=== PATIENT | female | born 1935 | race Caucasian/White ===

== ENCOUNTER → 2017-07-13 | Day surgery (SDC) | payer MEDICARE, OTHER ==
--- NOTE | 2017-07-11 15:24 | Diagnostic Imaging Report ---
PROCEDURE: Frontal and lateral views of the chest. COMPARISON: Chest x-ray 07/18/2014. INDICATIONS: PRE OP FINDINGS: Lines/tubes: None. Lungs: The lungs are well inflated and clear. There is no evidence of pneumonia or pulmonary edema. Pleura: There is no pleural effusion or pneumothorax. Heart and mediastinum: The heart and the mediastinum are normal. Aorta is mildly tortuous with atherosclerotic calcifications. Bones: No acute bony abnormality. Stable vertebroplasty material in the lower thoracic vertebrae x2. Unchanging anterior cervical fusion plate. Upper abdomen: Surgical clips near the GE junction and in the left upper quadrant abdomen. IMPRESSION: No acute cardiopulmonary disease. Dictated by: Noé Wie M.D. on 07/11/2017 at 15:32 Electronically approved by: Noé Wei M.D. on 07/11/2017 at 15:32
[2017-07-11 15:39] LABS: BASOPHILS % 0.3 % (0.0-1.0); EOSINOPHILS # (AUTO) 0.1 (0.0-0.4); EOSINOPHILS % 1.8 % (0.0-6.0); HEMATOCRIT 35.9 % (34.2-44.1); HEMOGLOBIN 11.2 g/dL (12.0-16.0); LYMPHOCYTES # (AUTO) 1.7 (1.0-3.2); LYMPHOCYTES % 26.9 % (18.0-39.1); MEAN CORPUSCULAR HEMOGLOBIN 29.6 pg (28-32); MEAN CORPUSCULAR HGB CONC 31.2 g/dL (31-35); MEAN CORPUSCULAR VOLUME 94.7 fL (81-99); MONOCYTES # (AUTO) 0.3 (0.2-0.8); MONOCYTES % 4.2 % (4.4-11.3); NEUTROPHILS # (AUTO) 4.1 (2.1-6.9); NEUTROPHILS % 66.2 % (38.7-80.0); PLATELET COUNT 148 x10e3/uL (140-360); RED BLOOD COUNT 3.79 x10e6/uL (3.6-5.1); RED CELL DISTRIBUTION WIDTH 15.6 % (11.7-14.4)
[2017-07-11 15:54] LABS: INR 1.07; PARTIAL THROMBOPLASTIN TIME 37.5 seconds (23.8-35.5); PROTHROMBIN TIME 14.5 seconds (11.9-14.5)
[~2017-07-13] MED LIST: BREO; BUPIVACAINE HCL 0.5% INJ 30 ML VIAL INJ ONE; CARAFATE1 GM/10 ML PO; CEFAZOLIN SOD 1 GM VIAL ONE; CIMZIA400 MG/2 M INJ; COUMADIN3 MG PO; COUMADIN6 MG PO; EVOXAC30 MG PO; FENTANYL CITRATE/PF 100MCG/2 ML INJ ONE; FLECTOR1 EACH TD; FLUTICASONE PROP PO; HYDROCODONE/APAP 7.5MG-325MG 1 EA TAB ONE; HYDROCODONE/APAP 7.5MG-325MG 1 EA TAB PO ONE; HYDROCODONE/APAP 7.5MG-325MG 1 EA TAB PO PRN; LEVOTHYROXINE88 MCG PO; LOVENOX40 MG/0.4 IM; LYRICA150 MG PO; LYRICA50 MG PO; MECLIZINE HCL25 MG PO; MIDAZOLAM HCL 2 MG/2 ML VIAL ONE; MORPHINE SULFATE 2 MG/ML SYR IV PRN; MYRBETRIQ25 MG PO; NEXIUM40 MG PO; NITROSTAT0.4 MG SL; PENTOXIFYLLINE 400 MG TAB CR PO SCH; PLAQUENIL200 MG PO; PREDNISONE10 MG PO; PREDNISONE5 MG PO; SEVOFLURANE INHAL SOLN 250 ML PEN BTL ONE; THYROXINE PO; TYLENOL WITH C1 EACH PO; ULTRAM50 MG PO; WARFARIN SODIUM5 MG PO; [UNRECOGNIZED DRUG - CODE] PO; [UNRECOGNIZED DRUG - OTHER] INJ
--- NOTE | 2017-07-14 14:55 | Operative Report ---
DATE OF PROCEDURE: July 13, 2017 PREOPERATIVE DIAGNOSIS: Right carpal tunnel syndrome, G56.01. POSTOPERATIVE DIAGNOSIS: Right carpal tunnel syndrome, G56.01. PROCEDURE: Right carpal tunnel release. ANESTHESIA: General. INDICATIONS: Patient is a woman who presents with severe right carpal tunnel syndrome, who was taken to the operating room for right carpal tunnel release. DETAILS OF PROCEDURE: After induction of general anesthesia, the patient was placed on the operating table in the supine position. The right arm was abducted over a hand table. The right hand, wrist, and forearm were prepped and draped circumferentially in sterile fashion. A small midline incision was created over the median palmar crease of the hand just distal to the distal flexor crease of the wrist. The subcutaneous fat was divided. The transverse carpal ligament was identified and incised with a #15 C-blade. The transverse carpal ligament was found to be extremely thick. Once the median nerve was visualized, the transverse carpal ligament was then divided proximally and distally as the care team assistant retracted the skin edges to expose the full length of the median nerve within the carpal tunnel. The median motor branch of the nerve was preserved within its fat pad more distally. Excellent decompression was achieved. The wound was irrigated with Bacitracin solution and closed with a 3-0 Vicryl suture for the subcutaneous layer and 3-0 nylon sutures in a vertical mattress fashion for the skin layer. The patient was awakened, extubated, and taken to postanesthesia care unit in stable condition. No intraoperative complications were encountered. Job#: [id number] PAT
== END | disposition home or self-care (01) ==
LOC: OR 07:47
PROVIDERS: ATTEND Neurological Surgery
DX: G56.01 Carpal tunnel syndrome, right upper limb (principal); M06.9 Rheumatoid arthritis, unspecified; G47.33 Obstructive sleep apnea (adult) (pediatric); I10 Essential (primary) hypertension; E03.9 Hypothyroidism, unspecified; K58.9 Irritable bowel syndrome, unspecified; Z01.810 Encounter for preprocedural cardiovascular examination; Z01.812 Encounter for preprocedural laboratory examination; Z01.818 Encounter for other preprocedural examination; Z79.01 Long term (current) use of anticoagulants
CPT/HCPCS: 36415; 64721; 71046; 85025; 85610; 85730; 93005; J0690; J2250

== ENCOUNTER 2018-11-24 15:23 | Emergency (ER) | payer MEDICARE, OTHER ==
[~2018-11-24] VITALS: Ht 160 cm; Wt 57.6 kg
[~2018-11-24 15:23] MED LIST changes: -BUPIVACAINE HCL 0.5% INJ 30 ML VIAL INJ ONE; -CEFAZOLIN SOD 1 GM VIAL ONE; -FENTANYL CITRATE/PF 100MCG/2 ML INJ ONE; -HYDROCODONE/APAP 7.5MG-325MG 1 EA TAB ONE; -HYDROCODONE/APAP 7.5MG-325MG 1 EA TAB PO ONE; -HYDROCODONE/APAP 7.5MG-325MG 1 EA TAB PO PRN; -MIDAZOLAM HCL 2 MG/2 ML VIAL ONE; -MORPHINE SULFATE 2 MG/ML SYR IV PRN; -PENTOXIFYLLINE 400 MG TAB CR PO SCH; -SEVOFLURANE INHAL SOLN 250 ML PEN BTL ONE
--- OUTSIDE RECORDS SUMMARY | 2018-11-24 15:27 | XMS REPORT | Summary of Care ---
Author Author PAOLO VARGAS M.D. Unknown Address Unknown Phone Unavailable Care Team Providers Care Lead Security Officer Name Role Phone REMI SHARP M.D. Unavailable Unavailable VIRGIL ANGULO M.D. Unavailable Unavailable Crescencio Butler, October Unavailable Unavailable DANIEL MEDEL MD Unavailable Unavailable Unavailable Unavailable Functional Status Name Dates Details Functional status health issues are not documented Status: Name Dates Details Cognitive status health issues are not documented Status: Problems Name Dates Details Bilateral leg edema (782.3, R60.0) Status: Active Coronary artery disease (414.00, I25.10) Status: Active Essential (primary) hypertension (401.9, I10) Status: Active Leg pain, bilateral (729.5, M79.604) Status: Active Rheumatoid arthritis (714.0, M06.9) Status: Active 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 Active predniSONE 5 MG Oral Tablet TAKE 1 TABLET DAILY. * Refills: 0 Active Marshall 10-325 MG Oral Tablet TAKE TABLET PRN * Refills: 0 Active Lyrica 75 MG Oral Capsule TAKE 1 CAPSULE TWICE DAILY. * Refills: 0 Active Plaquenil 200 MG Oral Tablet TAKE 1 TABLET TWICE DAILY. * Refills: 0 * Start : 12-Sep-2013 Active Nitrostat 0.4 MG Sublingual Tablet Sublingual PLACE 1 TABLET UNDER THE TONGUE EVERY 5 MINUTES UP TO 3 DOSES NEEDED FOR CHES T PAIN. * Quantity: 25 Refills: 1 VIRGIL ANGULO M.D. * Start : 24-Mar-2014 Active Furosemide 20 MG Oral Tablet TAKE 1 TABLET DAILY. * Quantity: 30 Refills: 0 REMI SHARP M.D. * Start : 29-Oct-2015 Active Breo Ellipta 100-25 MCG/INH Inhalation Aerosol Powder Breath Activated USE DIRECTED ON PACKAGE * Refills: 0 REMI SHARP M.D. * Start : 01-Nov-2016 Active 28 Inhaler Pack Carafate 1 GM Oral Tablet TAKE 1 TABLET EVERY 12 HOURS. * Quantity: 60 Refills: 3 * Start : 09-May-2017 Active Eliquis 2.5 MG Oral Tablet Take 1 tablet twice a day * Quantity: 180 Refills: 0 * Start : 27-Oct-2017 Active Allergies and Adverse Reactions Name Dates Details No Known Drug Allergies (Allergy) Status: Active Past Medical History Name Dates Details History of essential hypertension (V12.59, Z86.79) Status: Resolved History of hyperlipidemia (V12.29, Z86.39) Status: Resolved History of Rheumatoid arthritis (714.0, M06.9) Status: Resolved History of Thrombophlebitis Of Deep Vessels Of The Lower Extremity (V12.51) Status: Resolved History of thyroid disease (V12.29, Z86.39) Status: Resolved Procedures Procedure Dates Details History of Appendectomy Completed History of Cholecystectomy Completed History of Hysterectomy Completed History of Foot Surgery Right Completed History of Cataract Surgery Completed Immunization Name Dates Details Immunizations not documented Family History Name Dates Details Family history of Heart Disease (V17.49) Comments: Family History Status: Active Social History Name Dates Details - Status: Name Dates Details Former smoker Vital Signs Date Test Result Details No Known Vitals to report Results Date Description Value Details Results not documented Plan of Care Name Dates Details Planned Observations Planned Goals not documented Planned Encounters Appointment; PAOLO VARGAS M.D. On: 10-Dec-2018 14:30 Interventions Provided Medication Changes* Nitrostat 0.4 MG Sublingual Tablet Sublingual - Start Instructions Name Dates Details Instructions not documented Encounters No Encounter data documented Encounter Diagnosis: Problem not documented On: 19-Nov-2018
--- OUTSIDE RECORDS SUMMARY | 2018-11-24 15:27 | XMS REPORT ---
Author Author [facility] Address Unknown Phone Unavailable Care Team Providers Care Tree Killer Name Role Phone NACHO WHITNEY Unavailable Unavailable Problems This patient has no known problems. Allergies, Adverse Reactions, Alerts This patient has no known allergies or adverse reactions. Medications This patient has no known medications. Results Test Description Test Time Test Comments Text Results Atomic Results Result Comments CHEST 2 VIEWS [place] [address] Patient Name: VASU VICENTE MR #: [id number] : 1935 Age/Sex: 81/F Req #: [id number] Adm Physician: Ordered by: NACHO WHITNEY MD Report #: [id number] Location: OR Room/Bed: Procedure: [id number] DX/CHEST 2 VIEWS Exam Date: 07/11/17 Exam Time: 1507 REPORT STATUS: Signed PROCEDURE: Frontal and lateral views of the chest. COMPARISON: Chest x-ray 07/18/2014. INDICATIONS: PRE OP FINDINGS: Lines/tubes: None. Lungs: The lungs are well inflated and clear. There is no evidence of pneumonia or pulmonary edema. Pleura: There is no pleural effusion or pneumothorax. Heart and mediastinum: The heart and the mediastinum are normal. Aorta is mildly tortuous with atherosclerotic calcifications. Bones: No acute bony abnormality. Stable vertebroplasty material in the lower thoracic vertebrae x2. Unchanging anterior cervical fusion plate. Upper abdomen: Surgical clips near the GE junction and in the left upper quadrant abdomen. IMPRESSION: No acute cardiopulmonary disease. Dictated by: Neo Wei M.D. on 07/11/2017 at 15:32 Electronically approved by: Neo Wei M.D. on 07/11/2017 at 15:32 Dictated By: NEO WEI MD 1532 Transcribed By: LONA on 07/11/17 1532 COPY TO: NACHO WHITNEY MD
[2018-11-24] MEDS ORDERED: MECLIZINE HCL 12.5 MG TAB PO STA (16:08)
[2018-11-24] MEDS ORDERED: MECLIZINE HCL 12.5 MG TAB ONE (16:16)
[2018-11-24] MEDS ORDERED: SODIUM CHLORIDE 0.9% 1000 ML BAG IV ONE (17:00)
[2018-11-24] MEDS ORDERED: SODIUM CHLORIDE 0.9% 1000ML 1,000 ML ONE (17:15)
--- NOTE | 2018-11-24 17:16 | Diagnostic Imaging Report ---
EXAMINATION: Head CT HISTORY: Dizziness, ear pain COMPARISON: None. TECHNIQUE: Multidetector axial images were obtained without contrast from the foramen magnum to the vertex . The images were reconstructed using brain and bone algorithms. Thin section brain images were reformatted into coronal and sagittal planes. Image quality: Motion/streaking artifact limits the evaluation of the skull base and posterior cranial fossa. Dose modulation, iterative reconstruction, and/or weight based adjustment of the mA/kV was utilized to reduce the radiation dose to as low as reasonably achievable. FINDINGS: Parenchyma: 1. Modic 1 prominent periventricular, silva radiata and centrum semiovale white matter hypodensities, most likely nonspecific chronic microvascular ischemic changes extending to the bilateral follicular regions as well. 2. No mass or hemorrhage. No CT evidence of acute territorial vascular insult. Extra-axial spaces:No abnormal density. No extra-axial fluid collections Brain volume: Normal for age. Ventricles: No hydrocephalus or displacement. Arteries: No density suggestive of thrombus. Dural sinuses: No abnormal density. Extra-axial spaces: No abnormal density. Foramen magnum: No mass, Chiari malformation, or basilar invagination. Sella: No obvious mass. Paranasal/mastoid sinuses: Imaged portions unremarkable. Skull/Scalp: No lytic or blastic lesions. No fractures. IMPRESSION: 1. No acute intracranial abnormality, particularly no mass, hemorrhage or cortical infarcts. 2. Moderate chronic microvascular ischemic changes. Signed by: Dr. Chelsea Meza M.D. on 11/24/2018 5:12 PM
[2018-11-24] MEDS ORDERED: SODIUM CHLORIDE 0.9% 1000ML 1,000 ML IV SCH (17:27)
[2018-11-24] MEDS ORDERED: SODIUM CHLORIDE 0.9% 1000ML 1,000 ML IV ONE (17:30)
[2018-11-24] MEDS ORDERED: ONDANSETRON HCL INJ 2MG/ML 2ML 2 MG/ML VIAL IV PRN (17:30)
[2018-11-24 18:36] VITALS: BP 122/78
== END 2018-11-24 18:38 | disposition left against medical advice (07) ==
LOC: ER 15:23 → FSED 18:38
DX: I95.1 Orthostatic hypotension (principal); E86.1 Hypovolemia; D59.9 Acquired hemolytic anemia, unspecified; E03.9 Hypothyroidism, unspecified; M06.9 Rheumatoid arthritis, unspecified
CPT/HCPCS: 36415; 70450; 82553; 84484; 85025; 85651; 93005; 99283; J2405; J7030; J8597

== ENCOUNTER 2020-01-22 11:44 | Inpatient (IN) | payer MEDICARE, OTHER ==
[~2020-01-22] VITALS: Ht 160 cm; Wt 52.6 kg
[~2020-01-22 11:44] MED LIST changes: +FLUTICASONE PROP; -FLUTICASONE PROP PO
--- NOTE | 2020-01-22 12:06 | Emergency Department Note ---
History of Present Illnes History of Present Illness Chief Complaint: Head/Face Trauma History of Present Illness This is a 84 year old female on Plavix here for a syncopal spell. Patient 2 hours prior to arrival was in the kitchen, had an episode of pressure- like chest pain, lasted approximately 30 minutes when she felt lightheaded, passed out and struck the posterior aspect of her head. Patient states that she is sore over the posterior aspect of her scalp and also lateral neck. Patient did fall and had a syncopal episode also over the weekend, only complains of pain over the right side of the ribs. Denies any other complaints, no fever, no current chest pain, no shortness of breath. No urinary complaints, no belly pain. Historian: Patient, Equal Opportunity Assistant/EMS Arrival Mode: [facility] Treatment CHARGING MACHINE OPERATOR: EKG Additional Treatment CHARGING MACHINE OPERATOR: NONE Onset (how long ago): hour(s) (2) Location: home Quality: ache Severity: moderate Onset quality: sudden Timing of current episode: constant Progression: worsening Chronicity: recurrent Context: Denies recent illness Relieving factors: none Exacerbating factors: none Associated symptoms: Reports chest pain, Reports weakness; Denies diaphoresis, Denies fever/chills, Denies headaches, Denies nausea/vomiting, Denies shortness of breath, Denies syncope Treatments prior to arrival: none Past Medical/Family History Physician Review I have reviewed the patient's past medical and family history. Any updates have been documented here. Past Medical History Recent Fever: No Clinical Suspicion of Infectio: No New/Unexplained Change in Ment: No Past Medical History: Asthma, Hypothyroidism, Hyperlipedemia Past Surgical History: Cholecysctectomy Other Surgery: HYSTERECTOMY Other Last Tetanus: UTD Review of Systems Review of Systems Constitutional: Reports no symptoms, Reports as per HPI EENTM: Reports no symptoms Cardiovascular: Reports no symptoms, Reports as per HPI Respiratory: Reports no symptoms Gastrointestinal: Reports no symptoms Genitourinary: Reports no symptoms Musculoskeletal: Reports no symptoms Integumentary: Reports no symptoms Neurological: Reports no symptoms, Reports as per HPI Psychological: Reports no symptoms Endocrine: Reports no symptoms Hematological/Lymphatic: Reports no symptoms Physical Exam Related Data Allergies: Coded Allergies: No Known Allergies (Unverified , 01/22/20) Triage Vital Signs Vital Signs Date Time Temp Pulse Resp B/P (MAP) Pulse Ox O2 Delivery O2 Flow Rate FiO2 01/22/20 11:51 98.3 90 18 115/91 95 Room Air Physical Exam CONSTITUTIONAL Constitutional: Present well-developed, Present well-nourished HENT HENT: Present normocephalic, Present oropharynx clear/moist, Present nose norm al, Present other (patient with a 3 x 3 scalp hematoma posterior scalp, superficial laceration) HENT L/R: Present left ext ear normal, Present right ext ear normal EYES Eyes: Reports PERRL, Reports conjunctivae normal NECK Neck: Present ROM normal PULMONARY Pulmonary: Present effort normal, Present breath sounds normal, Present chest tenderness (Terrace to palpation right lateral chest, no crepitus) CARDIOVASCULAR Cardiovascular: Present regular rhythm, Present heart sounds normal, Present capillary refill normal, Present normal rate GASTROINTESTINAL Abdominal: Present soft, Present nontender, Present bowel sounds normal GENITOURINARY Genitourinary: Present exam deferred SKIN Skin: Present warm, Present dry MUSCULOSKELETAL Musculoskeletal: Present ROM normal, Present tenderness (tenderness to palpation over the left shoulder, states that this is chronic and is getting therapy for it. No deformity, full range of motion otherwise in all extremities, no deformity.) NEUROLOGICAL Neurological: Present alert, Present oriented x 3, Present no gross motor or sensory deficits PSYCHOLOGICAL Psychological: Present mood/affect normal, Present judgement normal Procedures 12 Lead ECG Interpretation ECG Interpretation : ECG: ECG 1 Prior ECG tracings: reviewed Rhythm: sinus rhythm Rate: normal BPM: 90 ST segments normal: Yes Additional Comments nl axis, no STEMI Assessment & Plan Medical Decision Making MDM Patient is an 84-year-old female that comes in here with an episode of chest pain leading to a syncopal spell. Patient has had prior episodes of this before, will need admission for syncope. Patient will get worked up for musculoskeletal injury, head injury with CT scan and lab work. Assessment & Plan Final Impression: (1) Anemia (2) Orthostatic hypotension (3) Syncope and collapse (4) Closed head injury Depart Disposition: ADMITTED Last Vital Signs Date Time Temp Pulse Resp B/P (MAP) Pulse Ox O2 Delivery O2 Flow Rate FiO2 01/22/20 11:51 98.3 90 18 115/91 95 Room Air Home Meds Reported Medications Oxybutynin Chloride (OXYBUTYNIN CHLORIDE) 5 Mg Tablet, 5 MG PO HS, #30 TAB 01/24/20 Trazodone Hcl (TRAZODONE HCL) 50 Mg Tablet, 50 MG PO DAILY, #30 TAB 01/24/20 Leflunomide (LEFLUNOMIDE) 10 Mg Tablet 01/24/20 Atorvastatin Calcium (LIPITOR) 20 Mg Tablet, 10 MG PO DAILY, #30 TAB 01/24/20 Hydroxychloroquine Sulfate (PLAQUENIL) 200 Mg Tab, 200 MG PO BID, #60 TAB 01/24/20 Lactobacil 2-S.thermo-Bifido 1 (Visbiome 112.5 Billion Capsule) 1 Each Capsule, 1 TAB PO BID 01/22/20 Apixaban (Eliquis) 2.5 Mg Tablet, 2.5 MG PO DAILY 01/22/20 Leflunomide (LEFLUNOMIDE) 10 Mg Tablet, 1 MG PO DAILY 01/22/20 Atorvastatin Calcium* (LIPITOR*) 10 Mg Tablet, 10 MG PO HS, TAB 01/22/20 Aspirin (ASPIRIN CHEW) 81 Mg Chew, 81 MG PO DAILY, #30 TAB 01/22/20 Certolizumab Pegol (CIMZIA) 400 Mg/2 Ml Syringekit, INJ MONTHLY 07/12/17 Sucralfate (CARAFATE) 1 Gm/10 Ml Oral.susp, 1 GM PO ACHS, #10 ML 07/12/17 [Flu/Cyc/Davis/Lid/Patricia] No Conflict Check, 489 GM PO PRN 07/12/17 [Breo Inh] No Conflict Check, 100 MCG INH DAILY 07/12/17 [Fluticasone Prop] 50 NASPR No Conflict Check, 50 MCG NA PRN 07/12/17 Tramadol Hcl (ULTRAM) 50 Mg Tablet, 50 MG PO BID, TAB 07/12/17 Cevimeline Hcl (EVOXAC) 30 Mg Capsule, 30 MG PO TID 07/12/17 Prednisone (PREDNISONE) 5 Mg Tablet, 5 MG PO DAILY 07/12/17 [Thyroxine] No Conflict Check, 75 MCG PO DAILY 07/12/17 Pregabalin (LYRICA) 50 Mg Cap, 150 MG PO BID, #30 TAB 07/12/17 Hydroxychloroquine Sulfate (PLAQUENIL) 200 Mg Tab, 200 MG PO BID, #30 TAB 07/12/17 Discontinued Reported Medications Tramadol Hcl (ULTRAM) 50 Mg Tablet, 50 MG PO TID, TAB 01/24/20 Hydrocodone Bit/Acetaminophen (NORCO 7.5-325 TABLET) 1 Each Tablet, 3 TAB PO BID, TAB 01/22/20 Warfarin Sodium* (COUMADIN*) 3 Mg Tablet, 5 MG PO 1700, #7 TAB 07/12/17 Warfarin Sodium* (COUMADIN*) 3 Mg Tablet, 4 MG PO 1700, #7 TAB 07/12/17 CYNDI JOSEPH MD Jan 22, 2020 12:02
[2020-01-22] MEDS ORDERED: TETANUS/DIPHTHERIA TOX ADULT 0.5 ML SYR IM ONE (12:30)
[2020-01-22 12:40] LABS: BASOPHILS % 0.3 % (0.0-1.0); EOSINOPHILS % 0.4 % (0.0-6.0); HEMATOCRIT 30.8 % (34.2-44.1); HEMOGLOBIN 9.7 g/dL (12.0-16.0); LYMPHOCYTES # (AUTO) 0.9 (1.0-3.2); MEAN CORPUSCULAR HEMOGLOBIN 33.9 pg (28-32); MEAN CORPUSCULAR HGB CONC 31.5 g/dL (31-35); MEAN CORPUSCULAR VOLUME 107.7 fL (81-99); MONOCYTES # (AUTO) 0.6 (0.2-0.8); MONOCYTES % 7.8 % (4.4-11.3); NEUTROPHILS # (AUTO) 5.9 (2.1-6.9); PLATELET COUNT 144 x10e3/uL (140-360); RED BLOOD COUNT 2.86 x10e6/uL (3.6-5.1); RED CELL DISTRIBUTION WIDTH 14.7 % (11.7-14.4)
[2020-01-22] MEDS ORDERED: LEFLUNOMIDE10 MG PO (12:47)
[2020-01-22] MEDS ORDERED: LIPITOR10 MG PO (12:47)
[2020-01-22] MEDS ORDERED: ELIQUIS2.5 MG PO (12:47)
[2020-01-22] MEDS ORDERED: NORCO 7.5-3251 EACH PO (12:47)
[2020-01-22] MEDS ORDERED: ASPIRIN CHEW81 MG PO (12:47)
[2020-01-22 12:50] LABS: INR 1.02; PROTHROMBIN TIME 13.9 seconds (11.9-14.5)
[2020-01-22] MEDS ORDERED: VISBIOME 112.51 EACH PO (12:51)
[2020-01-22 13:00] LABS: ALBUMIN 2.8 g/dL (3.5-5.0); ALBUMIN/GLOBULIN RATIO 0.9 (0.8-2.0); ANION GAP 15.1 mmol/L (8-16); CALCIUM 8.5 mg/dL (8.4-10.2); CREATININE, SERUM 1.13 mg/dL (0.57-1.11); POTASSIUM 4.1 mmol/L (3.5-5.1)
[2020-01-22 13:19] LABS: CREATINE KINASE MB 2.5 ng/mL (0-5.0); THYROID STIMULATING HORMONE 1.487 uIU/mL (0.350-4.940)
--- NOTE | 2020-01-22 13:29 | Diagnostic Imaging Report ---
EXAMINATION: Head and cervical spine CT without contrast. HISTORY: Syncope. Status post fall, trauma, pain COMPARISON: Head CT 11/24/2018 TECHNIQUE: Multidetector axial images were obtained from the foramen magnum to the vertex and through the cervical spine. Thin section brain images were reformatted into coronal and sagittal planes. Dose modulation, iterative reconstruction, and/or weight based adjustment of the mA/kV was utilized to reduce the radiation dose to as low as reasonably achievable. HEAD CT FINDINGS: Skull/scalp: No lytic or blastic lesions. No fractures. Parenchyma: Moderate compromise of the pulmonary hypodensities, consistent with chronic small vessel ischemic changes, stable since prior study No mass, hemorrhage or CT evidence of acute vascular insult. Brain volume: Normal for age. Ventricles: No hydrocephalus or displacement. Arteries: No density suggestive of thrombus. Dural sinuses: No abnormal density. Extra-axial spaces: No abnormal density. Foramen magnum: No mass, Chiari malformation, or basilar invagination. Sella: No obvious mass. Paranasal/mastoid sinuses: Arterial opacification with a small air-fluid level of the left sphenoid sinus is new since prior study. CERVICAL SPINE CT FINDINGS: Alignment:Straightening of the cervical lordosis which may be related to postsurgical change, positional and/or related to muscle spasm. Grade 2 spondylolisthesis of C3 on C4. Soft tissues: Normal. Vertebrae: Status post ACDF from C4 to C7, no loosening or fracture of the metallic hardware located from C5 to C7. Solitary interbody and posterior fusion is seen bilaterally.. Degenerative changes: C1-C2: Degenerative changes without stenosis. C2-C3: Prominent facet arthrosis minimally and the right side. The ligamenta flava thickening. Moderate canal and right foraminal stenoses. C3-C4: Disc osteophyte complex formation, bilateral uncovertebral and facet arthrosis. Moderate spinal canal and severe foraminal stenosis worst on the left. C4-C7: ACDF C4-C7, solid in the body and posterior fusion, no hardware failure or fracture. C7-T1: Disc osteophyte formation and facet arthrosis. Mild bilateral cysts. IMPRESSION: Head CT: 1. No acute traumatic intracranial abnormalities, particularly no hemorrhage. 2. Moderate chronic microvascular ischemic changes, stable compared to head CT of 11/24/2018. Cervical spine CT: 1. No acute fractures or dislocations. 2. Grade 2 degenerative spondylolisthesis of C3 on C4 3. Solid interbody and posterior fusion from C4 to C7 as above. 4. Chronic degenerative changes as described. Note: Acute post traumatic spinal cord, vascular or ligamentous injury cannot adequately be assessed with CT. Signed by: Dr. Chelsea Meza M.D. on 01/22/2020 1:25 PM
--- NOTE | 2020-01-22 13:30 | Diagnostic Imaging Report ---
EXAMINATION: RIBS UNILAT W/CXR INDICATION: Syncope, fall COMPARISON: Chest radiograph 07/11/2017 FINDINGS: LINES/TUBES:EKG leads overlie the chest. LUNGS:The lungs are well-inflated. No focal consolidation or pulmonary edema. PLEURA:No pleural effusion or pneumothorax. MEDIASTINUM:The cardiomediastinal silhouette appears normal in size and shape. Atherosclerotic calcifications of the thoracic aorta. BONES/SOFT TISSUES:No acute osseous injury. Specifically, no displaced right rib fracture. Prior T11 and T12 vertebral augmentation. ABDOMEN:No free air under the diaphragm. Status post posterior kidney. IMPRESSION: No displaced rib fracture. No focal pneumonia or pulmonary edema. Signed by: Brandon Bustos MD on 01/22/2020 1:27 PM
[2020-01-22 13:53] LABS: CLARITY,URINE CLEAR (CLEAR); COLOR,URINE YELLOW (YELLOW); LEUKOCYTE ESTERASE ,URINE NEGATIVE (NEGATIVE); NITRITE,URINE NEGATIVE (NEGATIVE); PROTEIN,URINE DIPSTICK NEGATIVE (NEGATIVE)
[2020-01-22 13:54] LABS: BILIRUBIN,URINE NEGATIVE (NEGATIVE); KETONES,URINE NEGATIVE (NEGATIVE); URINE UROBILINOGEN 0.2 mg/dL (0.2 - 1)
[2020-01-22 13:59] LABS: BACTERIA,URINE RARE /HPF; EPITHELIAL CELLS,URINE FEW /LPF; RBC,URINE 0-5 /HPF (0-5); WBC,URINE (MAN) 0-5 /HPF (0-5)
--- NOTE | 2020-01-22 14:06 | NUR ---
DR. JOSEPH AT BEDSIDE UPDATING PATIENT ON RADIOLOGY REPORTS HE REMOVED C-COLLAR
[2020-01-22] MEDS: ACETAMINOPHEN 325 MG TAB PO PRN ×2 (14:49→16:37)
[2020-01-22 16:15] VITALS: BP 161/87
[2020-01-22 17:05] VITALS: BP 161/87
[2020-01-22 17:20] VITALS: BP 161/87
--- NOTE | 2020-01-22 19:45 | NUR ---
RECEIVED REPORT FROM PREVIOUS NURSE. CALL LIGHT WITHIN REACH. PATIENT IN BED.
[2020-01-22 20:00] VITALS: BP_SYST 139; BP_SYST 151; BP_SYST 162; BP_DIAS 73; BP_DIAS 93; BP_DIAS 97
[2020-01-22] MEDS ORDERED: POLYETHYLENE GLYCOL 3350 17 GM PACK PO PRN (20:15)
[2020-01-22] MEDS ORDERED: HYDRALAZINE HCL 20 MG/ML VIAL IV PRN (20:15)
[2020-01-22] MEDS ORDERED: ONDANSETRON HCL INJ 2MG/ML 2ML 2 MG/ML VIAL IV PRN (20:15)
[2020-01-22 20:20] VITALS: BP 161/87
[2020-01-22] MEDS ORDERED: TRAMADOL HCL 50 MG TAB PO PRN (20:30)
[2020-01-22] MEDS ORDERED: ACETAMINOPHEN/CODEINE 300MG - 30MG TAB PO PRN (20:30)
[2020-01-22] MEDS: HYDROCODONE/APAP 7.5MG-325MG 1 EA TAB PO PRN (20:44)
[2020-01-22] MEDS ORDERED: TEMAZEPAM 15 MG CAP PO PRN (21:00)
[2020-01-22 21:20] VITALS: BP 151/93
[2020-01-23] VITALS (8 sets, daily range): BP systolic 138–157; BP diastolic 64–88
[2020-01-23 05:57] LABS: BASOPHILS % 0.3 % (0.0-1.0); EOSINOPHILS # (AUTO) 0.1 (0.0-0.4); EOSINOPHILS % 1.1 % (0.0-6.0); HEMOGLOBIN 11.2 g/dL (12.0-16.0); LYMPHOCYTES # (AUTO) 1.6 (1.0-3.2); LYMPHOCYTES % 18.2 % (18.0-39.1); MEAN CORPUSCULAR HEMOGLOBIN 35.1 pg (28-32); MEAN CORPUSCULAR HGB CONC 32.9 g/dL (31-35); MEAN CORPUSCULAR VOLUME 106.6 fL (81-99); MONOCYTES # (AUTO) 0.6 (0.2-0.8); MONOCYTES % 6.3 % (4.4-11.3); NEUTROPHILS # (AUTO) 6.4 (2.1-6.9); NEUTROPHILS % 73.6 % (38.7-80.0); PLATELET COUNT 133 x10e3/uL (140-360); RED BLOOD COUNT 3.19 x10e6/uL (3.6-5.1); RED CELL DISTRIBUTION WIDTH 14.3 % (11.7-14.4)
[2020-01-23 06:19] LABS: ALBUMIN 2.8 g/dL (3.5-5.0); ALBUMIN/GLOBULIN RATIO 0.9 (0.8-2.0); ANION GAP 14.6 mmol/L (8-16); CHOL/HDL RATIO 3.1 (3.0-3.6); CREATININE, SERUM 0.99 mg/dL (0.57-1.11); MAGNESIUM 1.7 MG/DL (1.3-2.1); PHOSPHORUS 3.1 MG/DL (2.3-4.7); POTASSIUM 3.6 mmol/L (3.5-5.1)
[2020-01-23 06:52] LABS: FREE T4 (FREE THYROXINE) 0.82 ng/dL (0.8-1.8); THYROID STIMULATING HORMONE 1.825 uIU/mL (0.350-4.940)
--- NOTE | 2020-01-23 07:15 | NUR ---
BEDSIDE SHIFT REPORT RECEIVED FROM THE TUNNEL KILN FIRER RN. EDUCATED PT ABOUT FALL PRECAUTIONS. PT VERBALIZED UNDERSTANDING. BED IS LOW AND LOCKED. BED ALARM IS ON. SIDE RAILS X2. CALL LIGHT WITH IN EASY REACH. PT DENIES NEEDS AT THIS TIME.
--- NOTE | 2020-01-23 07:16 | NUR ---
GAVE BEDSIDE SHIFT REPORT TO ONCOMING NURSE. CALL LIGHT WITHIN REACH. PATIENT IN BED. HOURLY ROUNDING PERFORMED
[2020-01-23 07:51] LABS: PLATELET ESTIMATE SLIGHTLY DECREASED; PLATELET MORPHOLOGY COMMENT RARE EDTA CLUMPING; RBC MORPHOLOGY COMMENT NORMAL
[2020-01-23] MEDS: FAMOTIDINE 20 MG/2 ML VIAL IV SCH ×2 (08:39→16:34)
[2020-01-23] MEDS: DOCUSATE SODIUM 100 MG CAP PO SCH ×2 (08:39→16:34)
[2020-01-23] MEDS: ACETAMINOPHEN 325 MG TAB PO PRN (08:39)
[2020-01-23] MEDS: HYDROCODONE/APAP 7.5MG-325MG 1 EA TAB PO PRN (12:20)
--- NOTE | 2020-01-23 19:10 | NUR ---
RECEIVED BEDSIDE SHIFT REPORT FROM PREVIOUS NURSE. CALL LIGHT WITHIN REACH. PATIENT IN BED.
--- NOTE | 2020-01-23 19:15 | NUR ---
BEDSIDE SHIFT REPORT GIVEN TO THE FUR REMODELER RN. PT DENIED FURTHER NEEDS.
[2020-01-24] VITALS (8 sets, daily range): BP systolic 124–156; BP diastolic 78–97
[2020-01-24] MEDS ORDERED: LIPITOR20 MG PO (02:01)
[2020-01-24] MEDS ORDERED: ULTRAM50 MG PO (02:01)
[2020-01-24] MEDS ORDERED: TRAZODONE HCL50 MG PO (02:01)
[2020-01-24] MEDS ORDERED: PLAQUENIL200 MG PO (02:01)
[2020-01-24] MEDS ORDERED: LEFLUNOMIDE10 MG (02:01)
[2020-01-24] MEDS ORDERED: [UNRECOGNIZED DRUG - OTHER] PO PRN (02:15)
[2020-01-24] MEDS ORDERED: FLUTICASONE PROPIONATE NASAL SPRAY NS PRN (02:15)
--- NOTE | 2020-01-24 02:37 | History and Physical ---
CHIEF COMPLAINT: Passed out. HISTORY OF PRESENT ILLNESS: The patient is an 84-year-old female with syncope at home; had episode of pressure like chest pain for 30 minutes, then felt lightheaded and passed out, striking the occipital aspect of her head with lateral neck soreness. EMS was called and the patient was seen by ER physician here at [facility]. Per documentation, she also had syncope over the weekend. I have attempted to communicate with the patient, however, she is confused at times, seems anxious, cold and a poor historian. PAST MEDICAL HISTORY: Rheumatoid arthritis, carpal tunnel syndrome, chronic kidney disease stage 3, hypothyroidism, asthma, hyperlipidemia, on a long-term current use of anticoagulant Eliquis, multiple falls. According to her , she has a murmur that she gets checked every 5 months. Stomach ulcer. No known history of oxygen use at home. PAST SURGICAL HISTORY: On 07/21/2014, she had a right total knee arthroplasty. On 07/13/2017, she had a right carpal tunnel release. History of cholecystectomy, hysterectomy, appendectomy, neck surgery, right foot surgery, and left hip surgery. FAMILY HISTORY: Father of a heart attack. Mother had a natural . She had 5 brothers, one of a heart attack. One in an accident. She has two daughters, one had liver and gallbladder issues. The other healthy. Two sons, one son was healthy and one son had liver cirrhosis. SOCIAL HISTORY: Noncontributory. ALLERGIES: NO KNOWN ALLERGIES. HOME MEDICATIONS: As per the : 1. Trazodone 50 mg at bedtime. 2. Carafate 1 g/10 mL 2 teaspoons by mouth before each meal and at night. 3. Oxybutynin 5 mg at bedtime. 4. Breo daily in the morning, 100 mcg/25 mcg. 5. Eliquis 2.5 mg daily. 6. Tramadol 50 mg t.i.d. 7. Plaquenil 200 mg b.i.d. 8. Baby aspirin 81 mg every morning. 9. Lyrica 150 mg. 10. Thyroxine 75 mcg every morning. 11. Prednisone 5 mg every morning. 12. Lipitor 10 mg every morning. 13. Leflunomide 10 mg every morning for arthritis. 14. She also uses a rubbing compound for the arthritis in her arms and legs 4 times a day. She uses Ketopar 8% compound, baclofen 2%, and gabapentin 6%. REVIEW OF SYSTEMS: Upon seeing the patient in room 111, she has general malaise, is unable to adequately verbalize why she does not feel well. Per the nurse, she had a pure weight before, but it was uncomfortable. She has no specific complaints, but is also confused at times. PHYSICAL EXAMINATION: VITAL SIGNS: Temperature 99.5, heart rate 107, blood pressure 145/64, respirations 18, and oxygen saturation 98%. Height 5 feet 3 inches, weight 116 pounds. BMI 20.54. Heart rate running 107/112 this morning. Orthostatic vital signs lying 151/73, sitting 162/93, standing was 139/97. Per the cnc machinist 2nd shift nurse she was told to report that she had a temperature of a 102.4 today, however, per documentation, the T-max is 100.8. GENERAL: The patient is supine, anxious. LUNGS: Overall clear to auscultation. Respiratory pattern with mild shortness of breath. She is on oxygen 1 L/minute via nasal cannula. HEENT: EOMI. She has a small occipital head laceration. NECK: Supple. No JVD. CARDIOVASCULAR: Irregularly irregular rhythm consistent with atrial fibrillation. ABDOMEN: Bowel sounds positive. Soft, nontender. EXTREMITIES: With scattered bruising in all 4 extremities. No pitting edema. No clubbing, cyanosis, or marked swelling or signs of DVT. NEUROLOGICAL: GCS 14. Eye 4, verbal 4, motor 6. INTEGUMENTARY: As aforementioned along with abrasion to the right knee. LABORATORY DATA: WBC 8.73, hemoglobin 11.2, hematocrit 34, platelets 133 (144). PT 13.9, INR 1.02. Sodium 142, potassium 3.6, chloride 107, CO2 of 24, anion gap 14.6, BUN 22, creatinine 0.99, estimated GFR 53, glucose 64, hemoglobin A1c 4.4%, calcium 9, phosphorus 3.1, magnesium 1.7, total bilirubin 0.5, AST 24, ALT 21, alkaline phosphatase 68, total protein 6, albumin 2.8, triglycerides 145, cholesterol 129, LDL 58, HDL 42, TSH 1.825, free T4 0.82. Urinalysis negative, overall within normal limits. On 01/21, coronavirus PCR was negative. DIAGNOSTIC STUDIES: On 01/21, CT of the brain showed no acute traumatic intracranial abnormalities particularly, no hemorrhage, moderate chronic microvascular ischemic changes, stable compared to the head CT that was done 11/24/2018. She had a CT of the cervical spine, which showed no acute fractures or dislocations. She has a grade 2 degenerative spondylolisthesis of C3 on C4, solid interbody and posterior fusion from C4-C7. Chronic degenerative changes. Unilateral ribs with chest x-ray on 01/21, showed no displaced rib fracture. No focal pneumonia or pulmonary edema. Carotid Doppler ultrasound done on 01/22 showed evidence of carotid disease without significant carotid stenosis in the right carotid and no evidence of significant carotid stenosis in the left carotid. Echocardiogram done on 01/22 showed estimated ejection fraction of 60%. SHEILA 1.7 cm2. Aortic valve and mitral valve calcified. Mitral regurgitation, tricuspid regurgitation, trace aortic insufficiency. On 01/21, EKG showed sinus rhythm with premature supraventricular complexes. Currently, telemetry shows atrial fibrillation with a controlled rate. ASSESSMENT/PLAN: 1. Chest pain episode with subsequent syncope and collapse with occipital closed head injury. The patient's imaging has been essentially negative for acute findings. Cardiac enzymes were negative with troponin 0.030. The patient's nurse called the family to verify home medications. We will restart her home medications. Given that the night nurse states that the patient is a bit more confused than when she started her shift, we will ask that Dr. Medina with Neurology be consulted. Nothing significant noted on orthostatic vital signs. White blood cell count within normal limits, possibly febrile today, although the aforementioned temperature 102.4 was not documented. Recheck general labs in the morning. Also, we will ask physical therapy to see patient, evaluate and treat. 2. Acute kidney injury with dehydration on chronic kidney disease stage 3, mild orthostatic hypotension. Creatinine 0.99 (1.13), EGFR 53 (46). She is on a cardiac diet. Currently does not need IV fluids. Monitor renal status. 3. Atrial fibrillation with rapid ventricular rate, now heart rate controlled,; on long-term current use of anticoagulant (Eliquis) or resume Eliquis. The patient takes at home. No home beta-butch, digoxin or amiodarone noted. Monitor atrial fibrillation via telemetry and ensure heart rate remains controlled. 4. Hypothyroidism. TSH 1.825, free T4 0.82, within normal limits. Home thyroxine 75 mcg daily resumed. 5. Hyperlipidemia. Lipids are within normal limits. Resume Lipitor. 6. Rheumatoid arthritis, ambulatory dysfunction, multiple falls or new arthritis medications. The patient does complain of pain in her legs, likely due to the arthritis. Physical Therapy to evaluate and treat. 7. Asthma. Wean oxygen room air as tolerated. She takes Breo at home. Renew if possible. 8. Prophylaxis, Eliquis and Protonix. H and P billing code [id number]. Time spent 60 minutes. Dictated by Chris Torres NP MD MICHI GaonaP/MODL /[id number]
[2020-01-24] MEDS: LEVOTHYROXINE SODIUM 75 MCG TAB PO SCH (06:05)
--- NOTE | 2020-01-24 07:00 | NUR ---
BEDSIDE SHIFT REPORT RECEIVED FROM THE ASSISTANCE REPRESENTATIVE RN. EDUCATED PT ABOUT FALL PRECAUTIONS. PT VERBALIZED UNDERSTANDING. BED IS LOW AND LOCKED. SIDE RAILS X2. CALL LIGHT WITH IN EASY REACH. BED ALARM IS ON. PT DENIES NEEDS AT THIS TIME.
[2020-01-24] MEDS ORDERED: OXYBUTYNIN CHLOR5 MG PO (07:50)
[2020-01-24] MEDS: SUCRALFATE 1 GM/10 ML SUSP PO SCH ×4 (08:30→20:37)
[2020-01-24] MEDS: PANTOPRAZOLE SOD 40 MG TABEC PO SCH (08:30)
[2020-01-24] MEDS ORDERED: HYDROCODONE/APAP 7.5MG-325MG 1 EA TAB PO SCH (09:00)
[2020-01-24] MEDS: LEFLUNOMIDE PO SCH (09:00)
[2020-01-24] MEDS: BREO SCH (09:00)
[2020-01-24] MEDS: CEVIMELINE HCL 30 MG PO SCH ×3 (09:00→20:47)
[2020-01-24] MEDS ORDERED: PREGABALIN 50 MG CAP PO SCH (09:00)
--- NOTE | 2020-01-24 09:30 | NUR ---
PT HOME MEDS RECONFIRMED WITH PT CHRIS VICENTE AND UPDATE LUCÍA BOSCH PER THE INSTRUCTION.
[2020-01-24] MEDS: PREDNISONE 5 MG TAB PO SCH (10:00)
[2020-01-24] MEDS: APIXAB 2.5 MG TABLET PO SCH (10:00)
[2020-01-24] MEDS: TRAMADOL HCL 50 MG TAB PO SCH ×2 (10:00→16:00)
[2020-01-24] MEDS: ASPIRIN 81 MG CHEW TAB PO SCH (10:00)
[2020-01-24] MEDS: HYDROXYCHLOROQUINE SULFATE 200 MG TAB PO SCH ×2 (10:00→17:29)
[2020-01-24] MEDS: DOCUSATE SODIUM 100 MG CAP PO SCH ×2 (10:00→17:29)
[2020-01-24] MEDS ORDERED: ONDANSETRON HCL 4 MG ORAL DISINTEGRATING TAB PO PRN (10:45)
--- NOTE | 2020-01-24 13:54 | Consultation ---
DATE OF CONSULTATION: 01/24/2020 Neurology Consultation HISTORY OF PRESENT ILLNESS: . Fallon Moreno who had a fall at home as well as syncope. According to the record, the patient does not recall very much of what happened. She knows she passed out at home. The record says that she was complaining of chest pain or pressure and had lightheadedness and fell, and she hit the back of her head and neck. EMS was called and the patient was admitted for further evaluation and care. There is report that she had syncopal event all over the weekend as well. She is not a very good historian and seems somewhat disoriented regarding what happened. PAST MEDICAL HISTORY: Includes rheumatoid arthritis, carpal tunnel syndrome, chronic kidney disease, asthma, hyperlipidemia, as well as the use of anticoagulation. FAMILY HISTORY: Includes cardiovascular events in the family. SOCIAL HISTORY: No alcohol, tobacco, or drugs. REVIEW OF SYSTEMS: The patient is denying any problems, however, does report that she had chest pain or chest pressure prior to admission. PHYSICAL EXAMINATION: VITAL SIGNS: Temperature 97.8, heart rate is mildly tachycardic around one, but regular. Blood pressure is 130/87. She is saturating 96%. She is now on nasal cannula. NEUROLOGIC: Her exam shows a slow, but responsive elderly female with no apparent bruises or contusions on the face or scalp. Her neck is nonrigid. She has full range of motion. Her trachea is midline. Speech is as mentioned slow. Extraocular muscles are intact. Pupils are reactive. Face is symmetric. Strength in upper extremities and lower extremities is 4/5. She does not have a tremor. She does have rigidity. She is able to follow commands, but her response to questions are nonspecific and vague. She is not oriented to her location or situation. ABDOMEN: Soft. PULMONARY: Clear. CARDIOVASCULAR: Regular rate and rhythm. DIAGNOSTIC DATA: CT scan showed no intracranial abnormalities on the . She does have some arthritic changes in the neck. She has some brain volume loss, but was stated normal for age. There is no evidence or reports of history of seizures or convulsions. Etiology of her falls is not entirely clear. RECOMMENDATION: At this time would be to we can go ahead and get an EEG, and rule out neurophysiological disturbance as contributor to the fall. She is very likely mechanical, so PT, OT and physical therapy are warranted as well as gait therapy. Rehab place therapy warranted given her age and her general not disability, but decompensatory state. She likely has dementia as well. I think initiating medications for dementia might also be helpful. I am going to start her on low-dose Aricept and see if she tolerates it while she is in the hospital, but again outpatient physical therapy evaluation may be warranted. She is on many medications already including aspirin, apixaban, and given her fall risk, it is not a good reason to keep her on both these medication, may be worth taking her off at least one of them. Actually, now that I think about it, I am going to hold off on starting Aricept given her complex medical regimen already until we can get a chance to speak to her as an outpatient to get her further evaluation. Overall, what we are going to do now is get an EEG, evaluate for underlying epilepsy. Do not start any antiepileptic therapies at this time. I will try to simplify her medications, perhaps I think generic nutritionists might be warranted. Get PT, OT, gait therapy, EMG as warranted and cardiovascular workup for this possible chest pain. Also evaluating for need of continued multiple anticoagulation as well as aspirin. MD KENDELL WASHBURN/MODL /[id number]
[2020-01-24] MEDS: PREGABALIN 75 MG CAP PO SCH (17:29)
--- NOTE | 2020-01-24 19:00 | NUR ---
BEDSIDE SHIFT REPORT GIVEN TO THE SPAR CAP BEVELER RN. PT DENIED FURTHER NEEDS.
[2020-01-24] MEDS: ATORVASTATIN 10 MG TAB PO SCH (20:37)
[2020-01-24] MEDS: OXYBUTYNIN CHLORIDE XL 5 MG TAB PO SCH (20:37)
[2020-01-25] VITALS (7 sets, daily range): BP systolic 120–149; BP diastolic 83–92
[2020-01-25] MEDS: HYDROCODONE/APAP 7.5MG-325MG 1 EA TAB PO PRN (01:04)
[2020-01-25] MEDS: ACETAMINOPHEN 325 MG TAB PO PRN ×2 (03:43→11:00)
[2020-01-25 05:22] LABS: BASOPHILS % 0.2 % (0.0-1.0); EOSINOPHILS # (AUTO) 0.2 (0.0-0.4); EOSINOPHILS % 2.1 % (0.0-6.0); HEMATOCRIT 34.6 % (34.2-44.1); HEMOGLOBIN 11.2 g/dL (12.0-16.0); LYMPHOCYTES # (AUTO) 1.5 (1.0-3.2); LYMPHOCYTES % 16.9 % (18.0-39.1); MEAN CORPUSCULAR HEMOGLOBIN 33.9 pg (28-32); MEAN CORPUSCULAR HGB CONC 32.4 g/dL (31-35); MEAN CORPUSCULAR VOLUME 104.8 fL (81-99); MONOCYTES # (AUTO) 0.7 (0.2-0.8); MONOCYTES % 8.4 % (4.4-11.3); NEUTROPHILS # (AUTO) 6.2 (2.1-6.9); NEUTROPHILS % 71.9 % (38.7-80.0); PLATELET COUNT 137 x10e3/uL (140-360); RED CELL DISTRIBUTION WIDTH 14.1 % (11.7-14.4)
[2020-01-25] MEDS: LEVOTHYROXINE SODIUM 75 MCG TAB PO SCH (05:31)
[2020-01-25 05:42] LABS: BLOOD UREA NITROGEN 21 mg/dL (7-26); BUN/CREATININE RATIO 24 (6-25); CALCIUM 8.7 mg/dL (8.4-10.2); CARBON DIOXIDE 25 mmol/L (22-29); CHLORIDE 104 mmol/L (98-107); CREATININE, SERUM 0.88 mg/dL (0.57-1.11); EST GLOMERULAR FILTRATION RATE > 60 ML/MIN (60-); GLUCOSE 76 mg/dL (74-118); SODIUM 140 mmol/L (136-145)
--- NOTE | 2020-01-25 07:39 | NUR ---
ASSUMED CARE. AAOX3. ACYANOTIC. RESTING IN BED. NO DISTRESS NOTED. CALL LIGHT IN REACH. SIDE RAILS UP X2. BED LOW AND LOCKED.
--- NOTE | 2020-01-25 07:49 | NUR ---
REPORT GIVEN TO DAYSHIFT NURSE. ALERT AND ORIENTED . NO SIGNS IV INFILTRATION. BED LOCKED AND IN LOW POSITION. CALL LIGHT WITHIN REACH. BED ALARM ACTIVATED.
[2020-01-25] MEDS: PREGABALIN 75 MG CAP PO SCH ×2 (08:30→16:23)
[2020-01-25] MEDS: PREDNISONE 5 MG TAB PO SCH (08:30)
[2020-01-25] MEDS: HYDROXYCHLOROQUINE SULFATE 200 MG TAB PO SCH ×2 (08:30→16:23)
[2020-01-25] MEDS: DOCUSATE SODIUM 100 MG CAP PO SCH ×2 (08:30→16:23)
[2020-01-25] MEDS: SUCRALFATE 1 GM/10 ML SUSP PO SCH ×4 (08:30→21:33)
[2020-01-25] MEDS: TRAMADOL HCL 50 MG TAB PO SCH ×2 (08:30→17:39)
[2020-01-25] MEDS: ASPIRIN 81 MG CHEW TAB PO SCH (08:30)
[2020-01-25] MEDS: PANTOPRAZOLE SOD 40 MG TABEC PO SCH (08:30)
[2020-01-25] MEDS: APIXAB 2.5 MG TABLET PO SCH (08:30)
[2020-01-25] MEDS: BREO SCH (08:50)
[2020-01-25] MEDS: CEVIMELINE HCL 30 MG PO SCH ×3 (08:50→21:00)
[2020-01-25] MEDS: LEFLUNOMIDE PO SCH (08:50)
[2020-01-25] MEDS: RIVASTIGMINE PATCH 4.6MG/24 HOURS PATCH TD SCH (09:00)
--- NOTE | 2020-01-25 12:12 | NUR ---
neurology follow up no acute issues complaints dmission. PHYSICAL EXAMINATION: 97.7 91 142/84 NEUROLOGIC: Her exam shows a slow, but responsive elderly female with no apparent bruises or contusions on the face or scalp. Her neck is nonrigid. She has full range of motion. Her trachea is midline. Speech is as mentioned slow. Extraocular muscles are intact. Pupils are reactive. Face is symmetric. Strength in upper extremities and lower extremities is 4/5. She does not have a tremor. She does have rigidity. She is able to follow commands, but her response to questions are nonspecific and vague. She is not oriented to her location or situation. ABDOMEN: Soft. PULMONARY: Clear. CARDIOVASCULAR: Regular rate and rhythm. DIAGNOSTIC DATA: CT scan showed no intracranial abnormalities on the . She does have some arthritic changes in the neck. She has some brain volume loss, but was stated normal for age. There is no evidence or reports of history of seizures or convulsions. Etiology of her falls is not entirely clear. EEG pending no acute neurological events no vascular stenosis no evidence strucutral injury in CT brain neurologcally stable outpt follow up for eval for encephalopathy and dementia
[2020-01-25] MEDS ORDERED: EXELON1 EACH TD (18:57)
--- NOTE | 2020-01-25 19:55 | Discharge Summary ---
CONSULTING PHYSICIAN: Carol Bell M.D. PRIMARY CARE PHYSICIAN: Jamaica Hall M.D. CHIEF COMPLAINT: Passed out. HISTORY OF PRESENT ILLNESS: The patient is an 84-year-old female with syncope at home. She had an episode of pressure-like chest pain for 30 minutes, then felt lightheaded and passed out, striking the occipital aspect of her head with lateral neck soreness. EMS was called and the patient was seen by the ER physician at the [facility]. Per documentation, she also had syncope over the weekend when initially seen, she was confused, anxious, and a poor historian and difficult to communicate with. Please see dictated history and physical for her past medical history, past surgical history, family history, social history, initial physical examination, initial lab work, as well as diagnostic studies from 01/21 and 01/22. ADMITTING DIAGNOSES: 1. Chest pain episode with subsequent syncope and collapse with occipital closed head injury. 2. Acute kidney injury with dehydration on chronic kidney disease, stage 3, mild orthostatic hypotension. 3. Atrial fibrillation with rapid ventricular rate, now heart rate controlled; on long-term current use of anticoagulant Eliquis. 4. Hypothyroidism. 5. Hyperlipidemia. 6. Rheumatoid arthritis, ambulatory dysfunction, multiple falls. 7. Asthma. DISCHARGE DIAGNOSES: 1. Chest pain episode with subsequent syncope and collapse with occipital closed head injury. 2. Acute kidney injury with dehydration on chronic kidney disease, stage 3, mild orthostatic hypotension. 3. Atrial fibrillation with rapid ventricular rate, now heart rate controlled; on long-term current use of anticoagulant Eliquis. 4. Hypothyroidism. 5. Hyperlipidemia. 6. Rheumatoid arthritis, ambulatory dysfunction, multiple falls. 7. Asthma. PHYSICAL EXAMINATION: VITAL SIGNS: On the day of discharge, temperature 97.7, heart rate 89, blood pressure 132/83, respirations 19, and oxygen saturation 95%. GENERAL: Supine in bed, relaxed, no complaints. LUNGS: Clear to auscultation. RESPIRATORY: Pattern even, unlabored. She is breathing on room air and no supplemental oxygen required. HEENT: EOMI. NECK: Supple. CARDIOVASCULAR: Regular rate and rhythm. No murmur. ABDOMEN: Bowel sounds positive. Soft, nontender. EXTREMITIES: No pitting edema. No clubbing, cyanosis, or marked swelling. NEUROLOGIC: GCS 15, nonfocal. Bedside neurological exam does not reveal any drift. The patient is alert, awake, and oriented x4 for person, place, time, and situation. LABORATORY DATA: Today's labs WBCs 8.65, hemoglobin 11.2, hematocrit 34.6, and platelets 134. Sodium 140, potassium 4.0, chloride 104, CO2 of 25, BUN 25, creatinine 0.88, glucose 76, and neutrophils 71.9. Her uric acid level is 5.1, prolactin 18.2, and ammonia level 37. Coronavirus PCR on 01/21 not detected. Per consultation note by Dr. Bell with Neurology, she was a poor historian when he saw her as well. EEG was ordered and completed. This was likely a mechanical fall. Physical therapy is warranted as well as gait therapy. Aricept was held, given her complex medical regimen. No antiepileptic therapies were started. I spoke with Dr. Bell on the phone, and he states the patient can be discharged from a Neurology standpoint. He said it would be a good idea for her to receive some home health or some type perhaps mcc and/or provider. I have entered orders with Case Management for home safety evaluation, mcc, and a AIRPORT RAMP AGENT if possible. The patient did work with physical therapy while she was here. Per the Physical Therapy note dated today, she has a rolling walker and Rollator at home. The patient needed minimum contact guard assistance with rolling walker, minimum assistance in supine sitting due to upper extremity weakness and decreased active range of motion of both shoulders. Minimal assistance with [id number] and [id number] transfers for safety due to left lower extremity pain on weightbearing? The patient did not tolerate sitting after the evaluation and had to be assisted back to bed. Regarding gait training, distance, and assistance, the patient did not tolerate gait even with rolling walker use. Instructed the patient offload left lower extremity more, but the pain increased and the patient had to rest and sit after four steps for minimum assistance. Pain location seems to be in the left hip. Rehab potential is good. The patient had left hip pain and limited participation, minimum assistance with supine to sitting and bed to chair, unable to ambulate more than 4 feet at this time. Per the note, PT will work on decreasing pain, improving transfers, and gait to get her able to go home and decrease caregiver burden upon discharge. Discharge plan is for her to [facility] Facility. Dictated by Chris Torres, TACTICAL RESPONSE GROUP OFFICER MD MALACHI Gaona/AUBREY /[id number]
--- NOTE | 2020-01-25 20:56 | Progress Note ---
DATE: CONSULTING PHYSICIAN: Carol Bell MD SUBJECTIVE: The patient lying supine in bed. States she got an "A+" from physical therapist that assisted her with walking today. She declines any complaints. No dizziness. No headache, chills, shortness of breath, cough, phlegm, chest pain, palpitations, nausea, vomiting, diarrhea, or constipation. OBJECTIVE: VITAL SIGNS: Temperature 97.7, heart rate 89, blood pressure 133/83, respirations 19, oxygen saturation 95%. GENERAL: No acute distress. LUNGS: Clear to auscultation. Respiratory pattern even and unlabored. She is breathing in room air. No supplemental oxygen. HEENT: EOMI. NECK: Supple. CARDIOVASCULAR: Regular rate and rhythm. No murmur. ABDOMEN: Bowel sounds positive. Soft, nontender. EXTREMITIES: No pitting edema. No clubbing, cyanosis, or marked swelling. NEUROLOGICAL: GCS 14-15. Pleasant and confused. LABORATORY DATA: WBCs 8.65, hemoglobin 11.2, hematocrit 34.6, platelets 137. Sodium 140, potassium 4, chloride 104, CO2 of 25, BUN 21, creatinine 0.88, estimated GFR greater than 60, glucose 76, calcium 8.7. Yesterday, the prolactin was 18.2, ammonia level 37, uric acid 5.1, hemoglobin A1c 01/22 was 4.4%. The rest were done on 01/23. No new imaging studies. ASSESSMENT/PLAN: 1. Chest pain episode with subsequent syncope and collapse with occipital closed head injury. The patient has had no further complaints of chest pain. Cardiac biomarkers were negative with troponin 0.03. Imaging has been essentially negative for acute findings. Afebrile for the last 48 hours. Case discussed with Dr. Bell. Awaiting final EEG results would be good to simplify her medications. Physical therapy, occupational therapy, gait therapy, and EMG as warranted. Per physical therapy note, the patient is unable to walk more than 4 feet. I considered discharging her home today and discussed it with her. She is very anxious to be discharged home. However, with her age of 84, multiple syncopal episodes of unclear etiology, history of multiple falls, general debility and inability to walk more than 4 feet, Jail Facility seems a reasonable disposition and orders for Case Management have been entered. 2. Acute kidney injury with dehydration on chronic kidney disease stage 3, mild orthostatic hypotension, creatinine 0.88 (0.99, 1.13), EGFR greater than 60 (53, 46), acute kidney injury, improved, monitor renal status. 3. Atrial fibrillation with heart rate controlled; on long-term current use of anticoagulant Eliquis, rapid ventricular rate, currently resolved. No home beta-butch, digoxin or amiodarone noted. Monitor telemetry per Neurology note. Cardiovascular workup may be a good idea for the possible chest pain that she experienced. Looking at consultation notes over the past seven years, there is no previous reflector driller and deburrer on the case. I will ask Dr. Schafer to see the patient for chest pain and atrial fibrillation. 4. Hypothyroidism, TSH 1.825, free T4 0.82, within normal limits. Home thyroxine 75 mcg daily resumed. 5. Hyperlipidemia, lipids within normal limits. Continue Lipitor. 6. Rheumatoid arthritis, ambulatory dysfunction, multiple falls, arthritis medications resumed. The patient complains of pain in both legs. Continue physical therapy. 7. Asthma, no longer on supplemental oxygen. She takes Breo at home, stable. 8. Prophylaxis, Eliquis and Protonix. 9. Billing code [id number]. TIME SPENT: 45 minutes. Dictated by Chris Torres, DANITZA MD MICHI GaonaP/MALGORZATAL /[id number]
[2020-01-25] MEDS: OXYBUTYNIN CHLORIDE XL 5 MG TAB PO SCH (21:33)
[2020-01-25] MEDS: ATORVASTATIN 10 MG TAB PO SCH (21:34)
--- NOTE | 2020-01-25 23:15 | NUR ---
Patient would benefit from outpatient PT services at [facility] to treat unsteady gait ad weakness. Addendum: 01/25/20 at 2317 by Quirino Sommers PT Amended: Links added.
[2020-01-26] VITALS: BP 136/88
[2020-01-26 04:00] VITALS: BP 118/67
[2020-01-26] MEDS: LEVOTHYROXINE SODIUM 75 MCG TAB PO SCH (05:19)
--- NOTE | 2020-01-26 06:17 | NUR ---
CALLED MD CRAFT. LEFT MESSAGE REGARDING CONSULT. AWAITING CALL BACK.
--- NOTE | 2020-01-26 07:19 | NUR ---
REPORT GIVEN TO DAYSHIFT NURSE. RESTING IN BED. ALERT AND ORIENTED. NO SIGNS IV INFILTRATION. BED LOCKED AND IN LOW POSITION. CALL LIGHT WITHIN REACH. BED ALARM ACTIVATED.
[2020-01-26 08:00] VITALS: BP 135/82
--- NOTE | 2020-01-26 08:28 | NUR ---
Met with patient along with Chris Torres TIPPLE SUPERVISOR. She was able to ambulate out into the hallway and back to bed using a rolling walker. She has agreed to have home health, and chose [facility]. Signed choice letter. Original placed on chart, copy placed in Transition folder. CM also discussed pt getting a Fall Alert system at home, as she is home alone 4 days a week. She has a daughter and son that live near her. She states her daughter visits her regularly, and she also goes to daughter's house. Pt has Multiple rolling walkers, and a wheelchair. She states her is very supportive as well, and is home with her on weekends and Monday. He works -[employer]. Notified Corey Downey, liaison with [facility]. She will notify liaison Elsie. Faxed clinicals to [phone]. Pt to in home today.
[2020-01-26] MEDS: CEVIMELINE HCL 30 MG PO SCH (09:00)
[2020-01-26] MEDS: RIVASTIGMINE PATCH 4.6MG/24 HOURS PATCH TD SCH (09:00)
[2020-01-26] MEDS: LEFLUNOMIDE PO SCH (09:00)
[2020-01-26] MEDS: APIXAB 2.5 MG TABLET PO SCH (09:00)
[2020-01-26] MEDS: BREO SCH (09:00)
[2020-01-26 09:06] VITALS: BP 135/82
--- NOTE | 2020-01-26 10:08 | NUR ---
neurology follow up no acute issues or complaints PHYSICAL EXAMINATION: 98 97 139/86 NEUROLOGIC: Her exam shows a slow, but responsive elderly female with no apparent bruises or contusions on the face or scalp. Her neck is nonrigid. She has full range of motion. Her trachea is midline. Speech is as mentioned slow. Extraocular muscles are intact. Pupils are reactive. Face is symmetric. Strength in upper extremities and lower extremities is 4/5. She does not have a tremor. She does have rigidity. She is able to follow commands, but her response to questions are nonspecific and vague. She is not oriented to her location or situation. ABDOMEN: Soft. PULMONARY: Clear. CARDIOVASCULAR: Regular rate and rhythm. DIAGNOSTIC DATA: CT scan showed no intracranial abnormalities on the . She does have some arthritic changes in the neck. She has some brain volume loss, but was stated normal for age. There is no evidence or reports of history of seizures or convulsions. Etiology of her falls is not entirely clear. EEG mild encephalopathy - diffuse and non focal no acute neurological events no vascular stenosis no evidence structural injury in CT brain neurologically stable outpt follow up for eval for encephalopathy and dementia parkinsonian workup as outpt emg may be warranted pt ot
--- NOTE | 2020-01-26 10:10 | NUR ---
eeg report 30 min study 21 channel 10/20 international electrode placement system read in bipolar and transverse montage EEG data: theta-alpha rythms generalized and diffuze 6-8 hz >20 mV anterior beta frequency <20mV >15 hz- intermittent no seizures high amplitude delta waves generalized EEG interpretation moderate diffuse encephalopathy without evidence of seizure activity or focal dysfunction significant electric and muscle artifact limits EEG read
[2020-01-26] MEDS: SUCRALFATE 1 GM/10 ML SUSP PO SCH (10:25)
[2020-01-26] MEDS: PREDNISONE 5 MG TAB PO SCH (10:25)
[2020-01-26] MEDS: DOCUSATE SODIUM 100 MG CAP PO SCH (10:25)
[2020-01-26] MEDS: PANTOPRAZOLE SOD 40 MG TABEC PO SCH (10:25)
[2020-01-26] MEDS: ASPIRIN 81 MG CHEW TAB PO SCH (10:25)
[2020-01-26] MEDS: PREGABALIN 75 MG CAP PO SCH (10:25)
[2020-01-26] MEDS: TRAMADOL HCL 50 MG TAB PO SCH (10:25)
[2020-01-26] MEDS: HYDROXYCHLOROQUINE SULFATE 200 MG TAB PO SCH (10:25)
--- NOTE | 2020-01-26 11:51 | Discharge Summary ---
PRIMARY CARE PHYSICIAN: Jamaica Hall M.D. Outpatient physicians include, from [facility]: Cardiology: Dr. Cruz. Neurology: Dr. Alcantar. Nephrology: Dr. Jolynn Jade. Rheumatology: Dr. Rene Narayanan Pain Management: Dr. Jose Juan Prather. Gastroenterology: Dr. Roca. Personal Care Worker: Dr. Soto CONSULTING PHYSICIAN: Inpatient consulting physicians include Dr. Carol Bell with Neurology and Dr. Tyler Schafer. CHIEF COMPLAINT: Passed out. HISTORY OF PRESENT ILLNESS: The patient is 84-year-old female with syncope at home. She had an episode of pressure-like chest pain for 30 minutes, then felt lightheaded and passed out, striking the occipital aspect of her head with lateral neck soreness. EMS was called and the patient was seen by the ER physician here at [facility]. Per documentation, she also had syncope over the weekend when initially seen. Later, I found out that the patient has a lifelong history of syncope. Apparently, whenever she raises her head while trying to look up or reach for something she becomes dizzy and passes out which can sometimes be common in elderly. Upon arrival, she was confused, anxious, and a poor historian, and very difficult to communicate with at that time. Please see dictated history and physical for past medical history, past surgical history, family history, social history, initial physical examination, initial vital signs, lab work and diagnostic studies from 01/21 and 01/22. On 01/22, her echocardiogram showed a calculated left ventricular ejection fraction of 65% on preliminary. Final conclusion was left ventricular ejection fraction of 65% to 70% with normal systolic function, impaired relaxation, SHEILA max 1.7 cm2. No pericardial effusion. ADMITTING DIAGNOSES: 1. Chest pain episode with subsequent syncope and collapse with occipital closed-head injury. 2. Acute kidney injury with dehydration on chronic kidney disease stage 3 and mild orthostatic hypotension. 3. Atrial fibrillation with rapid ventricular rate, now heart rate controlled on long-term current use of anticoagulant Eliquis. 4. Hypothyroidism. 5. Hyperlipidemia. 6. Rheumatoid arthritis, ambulatory dysfunction, multiple falls. 7. Asthma. DISCHARGE DIAGNOSES: 1. GERD episode with mechanical fall with possible syncope and collapse with occipital closed-head injury. 2. Postural instability with lifelong history of syncope. 3. Acute kidney injury with dehydration on chronic kidney disease stage 3, mild orthostatic hypotension. 4. Atrial fibrillation with heart rate controlled; on long-term current use of anticoagulant Eliquis, Eliquis stopped and aspirin started due to history of multiple falls. 5. Hypothyroidism. 6. Hyperlipidemia. 7. Rheumatoid arthritis, ambulatory dysfunction, multiple falls. 8. Asthma. LABORATORY DATA: From 01/24, WBCs 8.65, hemoglobin 11.2, hematocrit 34.6, platelets 137. Sodium 140, potassium 4, chloride 104, CO2 25, BUN 21, creatinine 0.88, estimated GFR greater than 60, glucose 76, calcium 8.7. On 01/22, hemoglobin A1c 4.4%. On 01/23, uric acid level 5.1, ammonia level 37, prolactin 18.2. Coronavirus PCR on 01/21 not detected. Per consultation note by Dr. Bell with Neurology, she was a poor historian when he saw her initially. EEG was ordered and completed. This was likely a mechanical fall per his note. Physical therapy is warranted as well as gait therapy. Aricept was held given her complex medical regimen. No antiepileptic therapies were started. I spoke with Dr. Bell on the phone, both 01/24 and this morning and he states the patient can be discharged from a Neurology standpoint. We both agree that the patient would benefit from home health. There was some confusion last night regarding the physical therapy documentation. The initial physical therapist's initial discharge plan was for a [facility] facility on the note dated 01/24 shows rolling walker and Rollator at home. The patient needed minimum contact guard assistance with rolling walker, minimal assistance in supine sitting due to upper extremity weakness and decreased active range of motion of both shoulders. Minimal assistance with [id number] and [id number] transfers for safety due to left lower extremity pain on weightbearing. The patient did not tolerate sitting after the evaluation and had to be assisted back to bed. Regarding gait training distance and assistance, the patient did not tolerate gait even with rolling walker use per the PT note. Instructed the patient offload left lower extremity more, but the pain increased and the patient had a rest and sit after four steps for minimal assistance. Pain location seemed to be in the left hip. Rehab potential good. Per the original PT note, the patient had left hip pain and limited participation, minimum assistance with supine to sitting and bed to chair, unable to ambulate for more than 4 feet at this time. Per the note, PT will work on decreasing pain, improving transfers, and gait to get her able to go home and decrease caregiver burden upon discharge, however, upon closer review of the physical therapist's note, his addendum reads: "The patient would benefit from outpatient PT services at [facility] to treat unsteady gait and weakness. Thus, the patient does not necessarily need [facility] facility. I went and saw the patient along with Jennifer with Case Management as well as TIEN Hickey and the patient was able to get out of bed and ambulate with her walker with contact guard assist. She walked with a rolling walker all the way from the bed to outside in the ross and back without pain medication early this morning. This was witnessed by the aforementioned staff and myself. After discussing the case again with Dr. Bell, we have decided to discharge her home on aspirin as her anticoagulant. We will stop the Eliquis given her history of multiple falls. Orders have been entered for [facility] for home health, [facility] for medication education, home safety evaluation, general monitoring of her syncope condition which is likely postural instability. The patient had a provider/FOOD ANALYST as possible PT/OT to evaluate and treat. The patient has a history of multiple falls, had more than one episode of syncope. Etiology is likely postural instability. We will ask that she be provided a fall alert mechanism/button as DME. She can continue her cardiac diet. Activity level as tolerated. Follow up with her PCP, Dr. Hall in 1 to 2 weeks. Follow up with Dr. Bell in 2 to 6 weeks. Follow up with her existing aforementioned physicians as needed. Prescription for Exelon patch provided. Dictated by Chris Torres NP MD MICHI GaonaP/MODL /[id number]
== END 2020-01-26 10:45 | disposition home or self-care (01) | DRG 312 ==
LOC: ER 12:00 → ERHOLD 13:52 → MED/SURG 16:06 → OBSVTOIN 01-24 15:30
PROVIDERS: ADMIT Internal Medicine; ATTEND Internal Medicine
DX: I95.1 Orthostatic hypotension (principal); N17.9 Acute kidney failure, unspecified; S09.90XA Unspecified injury of head, initial encounter; I12.9 Hypertensive chronic kidney disease with stage 1 through stage 4 chronic kidney disease, or unspecified chronic kidney disease; N18.3 Chronic kidney disease, stage 3 (moderate); I48.91 Unspecified atrial fibrillation; Z79.01 Long term (current) use of anticoagulants; E03.9 Hypothyroidism, unspecified; M06.9 Rheumatoid arthritis, unspecified; J45.909 Unspecified asthma, uncomplicated; W19.XXXA Unspecified fall, initial encounter; E86.0 Dehydration; Z74.09 Other reduced mobility; Z91.81 History of falling; K21.9 Gastro-esophageal reflux disease without esophagitis; Z11.59 Encounter for screening for other viral diseases
CPT/HCPCS: 36415; 70450; 71101; 72125; 80048; 80053; 80061; 81001; 82140; 82550; 82553; 83036; 83735; 84100; 84146; 84439; 84443; 84484; 84550; 85025; 85610; 90471; 90714; 93005; 93306; 93880; 95812; 97139; 99284; G0378; J0360; J7512; U0002

== ENCOUNTER → 2020-02-06 | Outpatient (CLI) | payer MEDICARE, OTHER ==
[~2020-02-06] MED LIST changes: +ASPIRIN CHEW81 MG PO; +ELIQUIS2.5 MG PO; +ELIQUIS5 MG PO; +EXELON1 EACH TD; +LEFLUNOMIDE10 MG; +LEFLUNOMIDE10 MG PO; +LIPITOR10 MG PO; +LIPITOR20 MG PO; +NORCO 7.5-3251 EACH PO; +OXYBUTYNIN CHLOR5 MG PO; +TRAZODONE HCL50 MG PO; +VISBIOME 112.51 EACH PO
== END ==
LOC: LAB 05:00 → EDSTATUS 02-11 09:00
PROVIDERS: ATTEND Orthopaedic Surgery
DX: Z01.818 Encounter for other preprocedural examination (principal); G56.03 Carpal tunnel syndrome, bilateral upper limbs; Z53.8 Procedure and treatment not carried out for other reasons; Z11.59 Encounter for screening for other viral diseases
CPT/HCPCS: U0002

== ENCOUNTER 2022-03-26 23:49 | Emergency (ER) | payer MEDICARE, OTHER ==
[~2022-03-26] VITALS: Ht 160 cm; Wt 52.6 kg
[2022-03-27 02:30] VITALS: BP 129/84
== END 2022-03-27 02:38 | disposition home or self-care (01) ==
LOC: ER 03-27 01:00
DX: S81.812A Laceration without foreign body, left lower leg, initial encounter (principal); W26.8XXA Contact with other sharp object(s), not elsewhere classified, initial encounter; Y92.003 Bedroom of unspecified non-institutional (private) residence as the place of occurrence of the external cause; M06.9 Rheumatoid arthritis, unspecified; E03.9 Hypothyroidism, unspecified; J45.909 Unspecified asthma, uncomplicated; Z86.718 Personal history of other venous thrombosis and embolism
CPT/HCPCS: 99284